=== PATIENT | female | born 1965 | race Caucasian/White ===

== ENCOUNTER 2024-10-22 09:50 | Day surgery (SDC) | payer OTHER ==
--- NOTE | 2024-10-22 08:23 | HP ---
HISTORY AND PHYSICAL HISTORY OF PRESENT ILLNESS: The patient had no prior colonoscopy. No bloody stools. No change in bowel habits. No new pain. Family history negative for colon cancer. PAST MEDICAL HISTORY: Hyperlipidemia, had some heart disease as well in the past. HOME MEDICATIONS: Repatha, aspirin. ALLERGIES: No known drug allergies. PAST SURGICAL HISTORY: She has had pacemaker and defibrillator, cholecystectomy, hysterectomy, bilateral carotid endarterectomies, had cardiac catheterization, had wrist surgery, had coronary stents and back surgery. SOCIAL HISTORY: One pack-day smoker. Denies alcohol abuse. FAMILY HISTORY: Diabetes, heart disease, COPD. REVIEW OF SYSTEMS: Twelve systems reviewed. No chest pain or palpitations. Other systems negative or noncontributory as above and per preadmission assessment. PHYSICAL EXAMINATION: GENERAL: Height 5 feet 8 inches. BMI 34. No acute distress. HEENT: Sclerae nonicteric. NECK: No JVD. CARDIOVASCULAR: Regular rate and rhythm. RESPIRATORY: Equal excursion, nonlabored breathing. ABDOMEN: Soft. SKIN: Dry. EXTREMITIES: No cyanosis or edema. NEUROLOGIC: Alert and oriented, moving all extremities symmetrically. PSYCHIATRIC: Appropriate mood and affect. RECTAL: Deferred until time of endoscopy exam. IMPRESSION: Patient is in need of screening colonoscopy. I feel patient is a candidate. Shown the risk sheet. Explained the procedure in detail including, but not limited to, bleeding and infection; risk of bowel injury or perforation; risk of missed or non-diagnosis or incomplete exam possibly requiring other procedures or referrals; risk of anesthesia or sedation; risk of bowel prep, but not limited to. He understands, is in agreement with procedure, and will proceed with outpatient screening colonoscopy under MAC anesthesia. Otherwise, continue medications for hyperlipidemia.
[2024-10-22] MEDS ORDERED: Lactated Ringers 1,000 ML IV ONE (10:08)
[2024-10-22] MEDS: Lactated Ringers 1,000 ML IV SCH (10:10)
[2024-10-22] MEDS ORDERED: propofoL IV ONE ×2 (12:34→12:53)
[2024-10-22] MEDS ORDERED: Versed 2 MG/2 ML Injection ONE (12:34)
[2024-10-22 13:46] VITALS: RESP 16; O2SAT 94
[2024-10-22 14:04] VITALS: BP 134/63; PULSE 65; TEMP 97.9
--- NOTE | 2024-10-24 10:14 | OP ---
SURGERY DATE/TIME: 10/22/2024 [id number] PREOPERATIVE DIAGNOSIS: Need for screening colonoscopy. POSTOPERATIVE DIAGNOSES: 1) Exophytic anal lesion. 2) Polyps. 3) Diverticulosis. 4) Withdrawal time was approximately 12 minutes. 5) ASA class 3. 6) Prep is only fair. PROCEDURE: 1) Colonoscopy to cecum, hot snare rectosigmoid colon polyp, hot snare rectal polyp. 2) Hot biopsy polypectomy approximately 4 or 5 rectosigmoid polyps. 3) Hot biopsy polypectomy of rectal polyps x2 or 3. SURGEON: Antoni Banuelos MD [employer] CONSULTANT: Alecia Hicks MS3 ESTIMATED BLOOD LOSS: Minimal. INDICATION: Consent was obtained. DESCRIPTION OF PROCEDURE AND FINDINGS: The patient was taken to the endoscopy room. MAC anesthesia induced after official time-out for planned procedure. Digital rectal exam did not reveal any rectal masses. She did have an external anal exophytic lesion. Whether this is an early condyloma or not is unclear. It is felt it should be excised down the road under some general anesthetic at a different date, after discussion of options with patient. She had some small hemorrhoids. Videocolonoscope inserted and passed up through the somewhat tortuous sigmoid, descending, and transverse colon, across the ascending colon to the cecum. Appendiceal orifice and valve well visualized and photo documented. I should note that the patient was peristalsing her appendix, so it was kind of inverting some, but when it relaxed it seemed to go back into more normal position. Otherwise, ileocecal valve was also photo documented. Prep overall was fair. The scope was then carefully withdrawn over the next 12 minutes, stopping to remove multiple polyps in the rectosigmoid colon. At least 4 or 5 were removed with hot biopsy forceps. A couple were removed in piecemeal fashion with piecemeal hot biopsy forceps, piecemeal polypectomy. There was one that was about 4 to 5 mm in size removed with a hot snare polypectomy. Good hemostasis noted. The scope was pulled back in down into the rectum. There was another 2 or 3 small polyps removed with hot biopsy polypectomy. There was a slightly larger polyp about 4 mm in size removed with hot snare polypectomy and vigorous cautery. Good hemostasis noted. Otherwise, the patient had some small diverticula in left colon. There were no signs of any large masses or obstructing lesions. Prep overall was fair. Withdrawal time was at least 12 minutes. The patient tolerated the procedure well. There were no immediate complications. Findings discussed with the family out in the waiting area.
== END 2024-10-22 14:00 | disposition home or self-care (01) ==
LOC: SDC 09:50
PROVIDERS: ATTEND Surgery
DX: Z12.11 Encounter for screening for malignant neoplasm of colon (principal); K57.30 Diverticulosis of large intestine without perforation or abscess without bleeding; K62.9 Disease of anus and rectum, unspecified; K64.8 Other hemorrhoids; D12.7 Benign neoplasm of rectosigmoid junction; D12.5 Benign neoplasm of sigmoid colon
CPT/HCPCS: 93005; J2250; J2704

== ENCOUNTER 2024-12-03 10:29 | Day surgery (SDC) | payer OTHER ==
--- NOTE | 2024-12-03 07:16 | HP ---
HISTORY AND PHYSICAL HISTORY OF PRESENT ILLNESS: Patient had an exophytic lesion on colonoscopy. She was in need of excision of his perianal lesion to avoid risk of progression or new carcinoma. PAST MEDICAL HISTORY: Hyperlipidemia, had some heart disease, peripheral vascular disease. HOME MEDICATIONS: Repatha Sure[employer] and aspirin. PAST SURGICAL HISTORY: She has pacemaker and defibrillator in the past, cholecystectomy in the past, hysterectomy in the past, carotid endarterectomy in the past, cardiac catheterization in the past, coronary stents in the past, back surgery and wrist surgery in the past. SOCIAL HISTORY: One pack a day smoker. Denies alcohol abuse. FAMILY HISTORY: Diabetes, heart disease, COPD. REVIEW OF SYSTEMS: Twelve systems reviewed. No chest pain or palpitations. Other systems negative or noncontributory as above and per preadmission questionnaire. PHYSICAL EXAMINATION: GENERAL: Height 5 feet 4 inches. BMI 34.33. HEENT: Sclerae anicteric. NECK: No JVD. CARDIOVASCULAR: Regular rate and rhythm. RESPIRATORY: Equal excursion. Nonlabored breathing. ABDOMEN: Soft. SKIN: Dry. EXTREMITIES: No cyanosis or edema. NEUROLOGIC: Alert and oriented. Moving all extremities symmetrically. PSYCHIATRIC: Appropriate mood and affect. RECTAL: Perianal lesion, question of thrombosed condyloma-like. Recommend excision with path to decrease risk of progression into cancer. IMPRESSION: Exophytic perianal lesion, recommend excision. Risks of bleeding, infection; risk If involved margins should it be carcinoma possibly requiring other procedures; risks of hematomas; risks of aches, pains, burning, or numbness possibly vermin exterminator or chronic; risk of anesthesia, DVT, PE, pneumonia, not limited to; risks of sphincter spasm or irritability; remote risk of incontinence issues possibly requiring referral or other treatments; risks of lesions recurring if this is a condyloma possibly requiring other referrals. We will proceed with outpatient excisional biopsy of perianal lesion. Otherwise, continue medications for hyperlipidemia.
[2024-12-03] MEDS ORDERED: ANUSOL-HC 2.5% CREAM 30 GM TOP ONE (10:30)
[2024-12-03] MEDS ORDERED: SODIUM CHLORIDE IV ONE (10:30)
[2024-12-03] MEDS ORDERED: CEFOXITIN IV ONE (10:30)
[2024-12-03] MEDS: celeBREX 100 MG PO ONE (11:13)
[2024-12-03] MEDS: Decadron 4 MG PO ONE (11:13)
[2024-12-03] MEDS: NEURONTIN PO ONE (11:14)
[2024-12-03] MEDS: TYLENOL EXTRA STRENGTH 500 MG PO ONE (11:14)
[2024-12-03] MEDS: Lactated Ringers 1,000 ML IV SCH (11:15)
[2024-12-03 11:43] LABS: ANION GAP 15.8 MEQ/L (5-15); Calcium 9.5 mg/dL (8.4-10.2); Creatinine 1 0.79 mg/dL (0.52-1.04); EST GLOMERULAR FILTRATION RATE 87.2 ML/MIN; Potassium 4.5 mmol/L (3.5-5.1)
[2024-12-03] MEDS ORDERED: Sensorcaine 0.25% 10 ML ONE (12:12)
[2024-12-03] MEDS ORDERED: XYLOCAINE 1% HCL 20 ML MDV ONE (12:13)
[2024-12-03] MEDS ORDERED: EXPAREL 133 MG/10 ML VIAL IJ ONE (12:21)
[2024-12-03] MEDS ORDERED: Zofran 4 MG/2 ML VIAL ONE (12:51)
[2024-12-03] MEDS ORDERED: dexAMETHasone sodium phosphate ONE (12:51)
[2024-12-03] MEDS ORDERED: propofoL IV ONE (13:05)
[2024-12-03] MEDS ORDERED: Lactated Ringers 1,000 ML IV ONE (13:49)
[2024-12-03 14:30] VITALS: RESP 16
[2024-12-03 14:41] VITALS: BP 140/50; PULSE 66; TEMP 96.8; O2SAT 99
--- NOTE | 2024-12-04 09:52 | OP ---
SURGERY DATE/TIME: 12/03/2024 [id number] PREOPERATIVE DIAGNOSIS: Exophytic, enlarging anorectal lesion. POSTOPERATIVE DIAGNOSIS: Exophytic, enlarging anorectal lesion. PROCEDURE: Excisional biopsy exophytic anorectal lesion (approximately 1.5 cm) with closure. SURGEON: Antoni Baneulos MD ANESTHESIA: General. ESTIMATED BLOOD LOSS: Minimal. INDICATION: Consent was obtained. DESCRIPTION OF PROCEDURE AND FINDINGS: The patient was taken to the operating room. General anesthesia was induced. She was placed in lithotomy position and prepped and draped in usual sterile fashion. After official time-out, no disagreement for planned procedure. Exparel was injected in the perirectal and perianal space. Once this was accomplished, after prepping and draping in usual sterile fashion and official time-out, the exophytic lesion, more than likely early condyloma, excision was taken out to normal skin around this area and deep to the subcu beneath it. This was carefully excised medially towards the rectal mucosa. This was passed off for pathology. The wound was closed with running 4-0 Monocryl in running fashion of interrupted 4-0 Monocryl. Good hemostasis noted. Small pieces of Gelfoam and hydrocortisone cream were placed in the anal canal and some dressing on the outside. The patient tolerated the procedure well. There were no immediate complications.
== END 2024-12-03 15:00 | disposition home or self-care (01) ==
LOC: SDC 10:29
PROVIDERS: ATTEND Surgery
DX: K62.9 Disease of anus and rectum, unspecified (principal)
CPT/HCPCS: 36415; 80048; 93005; J0666; J0694; J1100; J2405; J2704; A9270-GY